=== PATIENT | male | born 1990 | race Caucasian/White ===

== ENCOUNTER 2022-10-18 23:35 | Emergency (ER) | payer MEDICAID ==
[~2022-10-18] VITALS: Ht 172.7 cm; Wt 76.7 kg
[2022-10-18 23:43] VITALS: BP 148/99; PULSE 102; RESP 17; TEMP 97.9; TEMP 98; O2SAT 97
--- NOTE | 2022-10-18 23:44 | NUR ---
PT CHRISTIAN ALS. TAKEN TO BED 2
--- NOTE | 2022-10-18 23:55 | NUR ---
Dr. Garcia is examining the patient
[2022-10-19 00:35] LABS: BASOPHILS % (AUTO) 0.4 % (0.0-2.0); EOSINOPHILS % (AUTO) 0.6 % (0.0-4.0); HEMATOCRIT 48.3 % (36-52); HEMOGLOBIN 16.9 g/dL (12.0-18.0); LYMPHOCYTES # (AUTO) 2.6 K/uL (2.0-11.5); MEAN CORPUSCULAR HEMOGLOBIN 33 pg (27-31); MEAN CORPUSCULAR HGB CONC 35 g/dL (33-37); MEAN CORPUSCULAR VOLUME 94.1 fL (80-94); MONOCYTES # (AUTO) 0.4 K/uL (0.8-1.0); MONOCYTES % (AUTO) 7.5 % (1.7-9.3); NEUTROPHILS # (AUTO) 1.9 K/uL (1.8-7.7); NEUTROPHILS % (AUTO) 38.5 % (42.2-75.2); PLATELET COUNT (AUTO) 248 K/uL (140-450); RED BLOOD CELL COUNT(AUTO) 5.13 MIL/uL (4.20-6.10); RED CELL DISTRIBUTION WIDTH 13.5 % (11.6-13.7); WHITE BLOOD COUNT (AUTO) 4.9 K/uL (4.8-10.8)
--- NOTE | 2022-10-19 00:36 | NUR ---
Patient does not wish to proceed with medical care recommended by Dr. Garcia. Patient given information related to possible complications, up to and including , which could occur as a result of leaving hospital at this time. Patient verbalizes understanding of risks involved leaving against medical advice. Patient has signed AMA form.
[2022-10-19 00:52] LABS: ANION GAP 14.6 (8-16); CARBON DIOXIDE 26.2 mmol/L (21-32); POTASSIUM 3.8 mmol/L (3.5-5.1); TOTAL BILIRUBIN 0.7 mg/dL (0.0-1.0)
== END 2022-10-19 00:36 | disposition left against medical advice (07) ==
LOC: MED 23:35
DX: F10.129 Alcohol abuse with intoxication, unspecified (principal); R11.0 Nausea; R10.9 Unspecified abdominal pain; F41.9 Anxiety disorder, unspecified; Z91.018 Allergy to other foods
CPT/HCPCS: 36415; 80053; 85025; 93005; 99284; G0482